=== PATIENT | female | born 1975 | race Caucasian/White ===

== ENCOUNTER → 2018-03-23 | Outpatient (CLI) | payer OTHER ==
[~2018-03-23] MED LIST: AMOXICILLIN 50500 MG PO; B12INJ; CENTRUM SILVER1 EAC2; KEFLEX500 MG PO; NAPROSYN500 MG PO; NASONEX17 GM; NORCO 5-325 TA1 EACH PO; PROBIOTIC1 EAC3; PROZAC10 MG PO; ZYRTEC10 MG
--- NOTE | 2018-03-28 19:20 | SLEEP ---
[address] [address] SLEEP STUDY REPORT Name: EMMANUEL FELIX Room: [facility]#: [id number] Admission: 03/23/18 Attend Phys: Ana Castro Discharge: Date of : 79 Report #: [id number] THIS REPORT FOR: //name// CC: Ivania Shook This study has been reviewed in its entirety by a board certified sleep specialist DATE OF SERVICE: 03/25/2018 HOME SLEEP STUDY The patient is a 42-year-old who weighs 227 pounds and is 5 feet 2 inches tall with a BMI of 41.5. The patient's [place] score was 7. The patient underwent home sleep study performed at [facility]. A total recording time was 530 minutes. During the night study, the patient had 10 obstructive apneas, no mixed or central apneas. There were 37 hypopneas. The patient's apnea hypopnea index was 5.3 per hour. No supine sleep observed. EKG monitoring revealed mean heart rate of 66 beats per minute with a maximum of 112 beats per minute. Nocturnal oximetry study revealed an average oxygen saturation of 93% with the lowest of 85%. Only 4.6 minutes were spent in oxygen saturation of less than 90%. IMPRESSION: 1. Mild sleep apnea-hypopnea syndrome at an AHI of 5.3 per hour. 2. No clinically significant nocturnal hypoxia. RECOMMENDATIONS: 1. The patient has mild sleep apnea. I would recommend weight loss as the initial form of treatment. 2. If the patient remains clinically symptomatic despite weight loss, then consider other treatment options such as oral appliance versus a trial of CPAP titration. 3. Avoid [employer] depressants. 4. Cautioned regarding driving until the patient's symptoms have resolved with above recommendations. <ELECTRONICALLY SIGNED> By: Mateusz Smith MD 03/28/18 1920 [id number] [id number] Smith MD /nt
== END ==
LOC: M.SLEEPLAB 08:57
DX: G47.30 Sleep apnea, unspecified (principal); R06.83 Snoring; M54.5 Low back pain; F33.1 Major depressive disorder, recurrent, moderate

== ENCOUNTER → 2018-04-13 | Outpatient (CLI) | payer OTHER | LOC: M.MRI 11:23 | DX: M51.26 Other intervertebral disc displacement, lumbar region (principal); R93.89 Abnormal findings on diagnostic imaging of other specified body structures ==

== ENCOUNTER → 2018-05-08 | Outpatient (CLI) | payer OTHER ==
[~2018-05-08] MED LIST changes: +MEDROLDOSEPACK PO; +MOBIC15 MG PO; +OMEPRAZOLE40 MG PO; +VITAMIN D1000 UNI1 PO
--- NOTE | ~2018-05-08 | PAINCON ---
[address] [address] PAIN MANAGEMENT CONSULTATION Name: EMMANUEL FELIX Room: [facility]#: [id number] Admission: 05/08/18 Attend Phys: Michael Wilcox MD Discharge: Date of : 79 Report #: [id number] THIS REPORT FOR: //name// CC: Ivania Jaramillo DATE OF SERVICE: 05/14/2018 CHIEF COMPLAINT: Low back pain. HISTORY OF PRESENT ILLNESS: The patient is a 43-year-old female who has been referred to the Pain Clinic for evaluation. The patient states that she has had some pain and discomfort in her back, which has been problematic over the last year. She has been moving some items in her basement and noted a worsening of her pain at this juncture. She has undergone physical therapy. She has tried nonsteroidal anti-inflammatory medications and continues to find that her pain is problematic. Rates it as a 3-4/10. There is a pain in the lower portion of her back as well as some pain in the left side. Twisting and bending can increase the pain and discomfort. She has undergone physical therapy twice a week. She has noted some benefit from that. She has not had back surgery. Denies any new bowel or bladder dysfunction. Stated she had an x-ray in her low back that showed some narrowing of her spine at L5-S1 on the . She feels her pain is always there, sometimes more problematic than others. ALLERGIES: No known drug allergies. MEDICATIONS: Zyrtec 10 mg, vitamin D 1000 units, Naprosyn 500 mg b.i.d., and omeprazole 40 mg before meals. PAST MEDICAL HISTORY: Generally good health. PAST SURGICAL HISTORY: 04/2016, D and C 09/2007 and 2010. SOCIAL HISTORY: She is a homemaker. REVIEW OF SYSTEMS: Questionnaire indicates generally good health, fatigue, weakness, wears glasses, back pain. DIAGNOSTIC DATA: MRI of the lumbar spine dated 04/13/2018, L3-L4 minimal disk bulge is present without disk protrusion or subluxation. Disk space height is well maintained. L4-L5, mild loss of disk space height and disk signal is present. Hypertrophic facet changes and disk bulging results in bilateral neural foraminal narrowing. Right signal along the posterior right margin of the disks reasonably consistent with a small annular tear. No central spinal stenosis or disk protrusion. L5-S1, mild loss [place] [address] PAIN MANAGEMENT CONSULTATION Name: EMMANUEL FELIX Room: [facility]#: [id number] Admission: 05/08/18 Attend Phys: Michael Wilcox MD Discharge: Date of : 79 Report #: [id number] signal was present. Mild hypertrophic facet changes are present. No evidence of significant protrusion or subluxation. Bone marrow signal intensity is normal. Paraspinous musculature is intact. PAIN CLINIC ASSESSMENT/PQRS: 1. History of osteoarthritis. The patient is not being treated for osteoarthritis or rheumatoid arthritis. 2. Height 5 feet 2 inches, weight 232 pounds, BMI is 42.4. 3. Vital signs: Blood pressure is 119/88, heart rate 72, respiratory rate 18, room air saturation 96%, temperature 98.3. 4. Pain intensity 3-4/10. 5. Fall history: The patient has not fallen in the last 3 months. 6. Blood thinner. The patient is not on a blood thinning medication. 7. Hypertension. The patient is not being treated for hypertension. 8. Opioid greater than 6 weeks. The patient is not an opioid regimen. 9. Risk assessment tool, low for opioid use. 10. Functional assessment tool. 11. Recreational drug use. The patient denies use of recreational drugs. 12. Tobacco: The patient denies use of tobacco. 13. Alcohol: The patient denies significant use of alcoholic beverages. PHYSICAL EXAMINATION: GENERAL: The patient is a well-developed, well-nourished white female. Appears her stated age. She is alert and oriented x 3. Affect is appropriate. Speech is fluent. HEENT: Normocephalic and atraumatic. Extraocular eye muscles intact. Sclerae nonicteric. Mucous membranes are moist. NECK: Without adenopathy or JVD. HEART: Regular rate and rhythm. ABDOMEN: Nontender. Bowel sounds present. EXTREMITIES: Upper extremity muscle strength is judged to be 5/5 for the major muscle groups. The patient complains of pain and discomfort in the left lower quadrant of her back radiating down into the flank. Deep tendon reflexes are trace at the biceps and trace at the knees bilaterally. Forward bending to about 90 degrees caused some increased low back discomfort. Left and right lateral rotation cause some discomfort. Right rotation caused some increased pain, left side was not as problematic. Lumbar extension caused increased pain and discomfort. Anterior and posterior spring tests were negative. Tray sign was negative. IMPRESSION: 1. Chronic low back pain with MRI showing evidence of an annular tear. 2. Depression. RECOMMENDATIONS: We discussed the treatment options with the patient. At this juncture, she has some generalized pain in the low back area. We will try a [address] [place] [address] [place] [address] PAIN MANAGEMENT CONSULTATION Name: EMMANUEL FELIX Room: [facility]#: [id number] Admission: 05/08/18 Attend Phys: Michael Wilcox MD Discharge: Date of : 79 Report #: [id number] conservative approach. We will have the patient take a Medrol Dosepak. She will also try Meloxicam 15 mg 1 p.o. every day. Possibility of myofascial pain injections as well as if the patient has continued discomfort, one may consider the injection in the low back area where the annular tears located. The patient is encouraged to continue with her activity. I would like to thank you for letting us participate in her care. We hope she continues to improve. By: 1415 [id number]. Henok Wilcox MD /nt
== END ==
LOC: M.PC 04:41
DX: M51.36 Other intervertebral disc degeneration, lumbar region (principal); M54.5 Low back pain; G89.29 Other chronic pain; F32.9 Major depressive disorder, single episode, unspecified